=== PATIENT | female | born 1955 | race Caucasian/White ===

== ENCOUNTER 2017-06-01 11:48 | Inpatient (IN) ==
[2017-06-01] MEDS ORDERED: ZOSYN 3.375 GM in NS 50 ML IV SCH (15:15)
[2017-06-01 15:43] LABS: MANUAL DIFF NEEDED? NO
[2017-06-01 15:46] LABS: BASO% 0.2 % (0.0-0.8); EOS# 0.21 X1000 (0.0-0.7); EOS% 1.4 % (0.0-10.0); HEMATOCRIT 39.8 % (37.0-47.0); HEMOGLOBIN 13.4 g/dL (12.0-16.0); IMM GRAN# 0.03 X1000 (0.0-0.04); IMM GRAN% 0.2 % (0.0-0.5); LYMPH# 2.82 X1000 (1.2-3.4); LYMPH% 19.4 % (20.5-51.1); MCH 28.6 PG (27-31); MCHC 33.7 g/dL (33-37); MCV 84.9 FL (81-99); MONO# 1.08 X1000 (0.11-0.59); MONO% 7.4 % (1.7-9.3); MPV 9.2 FL (7.4-10.4); NEUT% 71.4 % (42.2-75.2); PLT 364 X1000 (130-400); RBC 4.69 XMIL (4.2-5.4)
[2017-06-01] MEDS: NS 1,000 ML IV SCH (15:48)
[2017-06-01 15:59] LABS: INR 0.98; PROTIME 10.3 Seconds (9.2-11.7)
[2017-06-01] MEDS ORDERED: LEVAQUIN 500 MG/D5W 500 MG/100 ML IVPB IV SCH (16:00)
[2017-06-01 16:04] LABS: AGAP 13; ALBUMIN 4.2 g/dL (3.5-5.0); ALKALINE PHOSPHATASE 107 U/L (32-104); BUN 7 mg/dL (8-22); CHLORIDE 103 mmol/L (98-107); CK PROFILE 32 U/L (24-173); COSMO 279; GOT 16 U/L (10-30); GPT 23 U/L (10-36); POTASSIUM 3.7 mmol/L (3.5-5.1); SODIUM 141 mmol/L (136-145); TCO2 25 mmol/L (25-35); TOTAL BILIRUBIN 0.37 mg/dL (0.20-1.00); TOTAL PROTEIN 7.4 g/dL (6.3-8.3)
[2017-06-01] MEDS: DUONEB (A & A) INH SCH ×3 (16:09→23:20)
[2017-06-01 16:13] LABS: ALLEN TEST YES; BE 1.6 mmoll (-3.0-3.0); BLOOD TYPE ARTERIAL; DRAW SITE R BRACHIAL; PCO2(98.6) 30 mmHg (35-45); PO2(98.6) 99 mmHg (60-100); SAMPLE BLOOD; SAO2 98.8 % (95.0-100.0); THB 12.8 g/dL (11.5-17.4); pH(98.6) 7.51 (7.35-7.45)
[2017-06-01 16:15] LABS: MODALITY ROOM AIR
[2017-06-01] MEDS: SOLU-MEDROL IV SCH ×2 (16:18→23:55)
[2017-06-01] MEDS: LEVAQUIN 750 MG/D5W 750 MG/150 ML IVPB IV SCH (16:18)
[2017-06-01] MEDS: LOVENOX SUBQ SCH (16:18)
[2017-06-01] MEDS: SODIUM CHLORIDE 0.9% INJ SCH (17:35)
[2017-06-01] MEDS: PROTONIX IV SCH (17:35)
--- NOTE | 2017-06-01 17:54 | Diag Imaging Result Doc PS360 ---
EXAM: CT THORAX W/CONTRAST - 06/01/2017 HISTORY: pneumonia TECHNIQUE: With intravenous contrast. Low-dose protocol. COMPARISON: None. FINDINGS: There are scattered patchy infiltrates at the right middle lobe, right lower lobe, inferior left upper lobe, and inferior left lower lobe. These may relate to pneumonitis or pneumonia. There is an 8 x 3 mm pleural-based nodular opacity versus peripheral atelectasis at the more superior posterior left lower lobe. There is a 4 mm nodule in the superior segment of the right lower lobe. There is no pleural effusion or pneumothorax identified. There is a calcified granuloma at the superior segment of the left lower lobe and there are calcified left hilar mediastinal lymph nodes from old granulomatous disease. There is mediastinal adenopathy which is most prominent at the subcarinal region. There are some small right hilar lymph nodes. Included sections of upper abdomen show possible mild fatty infiltration of the visualized portion of the liver. There are calcified granulomas in the spleen from old granulomatous disease. There is been previous cholecystectomy. IMPRESSION: Patchy bilateral infiltrates which may relate to pneumonitis or pneumonia. Nonspecific small nodular opacities at bilateral lower lobes. Mild mediastinal adenopathy, most prominent at the subcarinal mediastinum. This could be reactive, but malignant adenopathy is not excluded. Correlation with clinical evaluation is recommended. Electronically signed by Florian Conner 06/01/2017 5:52 PM
[2017-06-01] MEDS ORDERED: NICODERM PATCH TD PRN (19:14)
--- NOTE | 2017-06-01 22:44 | HISTORY AND PHYSICAL ---
CHIEF COMPLAINT: Shortness of breath, cough, wheezing for the last 10 days. HISTORY OF PRESENT ILLNESS: She is a 61-year-old pleasant white female, who was evaluated 3 times as an outpatient with cough, wheezing, continues to smoke and chest x-ray possible pneumonia in the right lower lobe. She was given 3 rounds of antibiotics, two injections. As a result, a hospital admission was warranted. Basically admitted for acute COPD exacerbation. PAST HISTORY: COPD. Nicotine dependency. Umbilical hernia. Hyperlipidemia. T12 chronic compression fracture. PAST SURGICAL HISTORY: Complete hysterectomy, C-spine diskectomy. Cholecystectomy. Bilateral carpal tunnel surgery. MEDICINES: Aspirin. Pravachol. Breo. Spiriva. Nebulizers. Z-Freddie. Doxycycline. Levaquin. Ed-A-Hist . Ultram as needed. ALLERGIES: Penicillin. SOCIAL HISTORY: . Two kids. Lives in [place]. Smoking 1 pack a day for last 33 years. Socially drinks alcohol. FAMILY HISTORY: Father of heart attack at 56. Mom of stroke. Sister recently had a bypass surgery. REVIEW OF SYSTEMS: HEENT: No headache. No vision problem. No earache. No sore throat. Neck: Supple. No lymphadenopathy. No goiter. Cardiopulmonary: Coughing, shortness of breath, wheezing. No chest pain. GI: No nausea, vomiting, abdominal pain. : No history of hesitancy, frequency. No swelling of legs. No joint pain. Neurologic: No focal symptoms or weakness. PHYSICAL EXAMINATION: VITAL SIGNS: She is afebrile. Tachycardic. Hemodynamics were stable. not in distress. HEENT: Atraumatic, normocephalic. Pupils equal, react to light. TMs are normal. Nose and throat within normal limits. NECK: Supple. No lymphadenopathy. No goiter. CHEST: Bilateral wheezing. HEART: Sounds are regular. Tachycardic. ABDOMEN: Belly is soft, nontender. Good bowel sounds. EXTREMITIES: No peripheral edema, cyanosis. NEUROLOGIC: No obvious neurological deficits. INVESTIGATIONS: CBC: White cell count 14, hematocrit 39, platelets 364,000. PT/INR is normal. ABG: PH is 7.1, pCO2 30, PO2 99, bicarb 26 on room air. SMA7: Normal and cardiac enzymes are normal. ProBNP was normal. CRP is slightly elevated. Check the EKG. Chest x- ray, early right lower lobe infiltrate. ASSESSMENT AND PLAN: A 61-year-old white female, admitted to the hospital with acute COPD exacerbation with bronchopneumonia on the right side. PLAN: 1. IV fluids. 2. Bronchodilators and IV steroids, IV Levaquin. 3. DVT GI prophylaxis as directed. 4. Nicotine patch. 5. Hyperlipidemia, on Pravachol. 6. Initiate vaccination protocol which includes flu and pneumonia prior to the discharge. We will also get a CT of the chest. Follow up on the pending labs and pulmonary function tests after she gets better. cc: Felipe De Luna MD MTDD
[2017-06-02] MEDS: NS 1,000 ML IV SCH ×3 (02:37→16:26)
[2017-06-02] MEDS: DUONEB (A & A) INH SCH ×7 (03:35→23:34)
[2017-06-02 05:57] LABS: HDL 45 mg/dL (45-65); LDL 164 mg/dL; TRIGLYCERIDES 113 mg/dL (35-135); VLDL 23 mg/dL
[2017-06-02] MEDS: SPIRIVA INH SCH (07:41)
[2017-06-02] MEDS: BREO ELLIPTA 100/25 MCG INH INH SCH (07:44)
--- NOTE | 2017-06-02 08:15 | Diag Imaging Result Doc PS360 ---
EXAM: CHEST-2 VIEWS HISTORY: hypoxia TECHNIQUE: Two views COMPARISON: None. FINDINGS: The lungs are well expanded. The heart is not enlarged. The vessels are not distended. There are no infiltrates. No pleural effusions. There is a granuloma in the upper left lung. IMPRESSION: No acute abnormality. Electronically signed by Srini Mckeon 06/02/2017 8:13 AM
[2017-06-02] MEDS: ASPIRIN PO SCH (09:02)
[2017-06-02] MEDS: SOLU-MEDROL IV SCH ×2 (09:02→16:16)
[2017-06-02] MEDS: PRAVACHOL PO SCH (09:02)
[2017-06-02] MEDS: LEVAQUIN 750 MG/D5W 750 MG/150 ML IVPB IV SCH (16:16)
[2017-06-02] MEDS: LOVENOX SUBQ SCH (16:16)
[2017-06-02] MEDS: PROTONIX IV SCH (16:16)
[2017-06-02] MEDS: SODIUM CHLORIDE 0.9% INJ SCH (16:16)
[2017-06-02] MEDS: TYLENOL PO PRN (17:23)
--- NOTE | 2017-06-02 19:40 | PROGRESS NOTE ---
DATE: 06/02/2017 SUBJECTIVE: The patient is still wheezing. No chest pain. REVIEW OF SYSTEMS: HEENT: Sniffles. Cardiopulmonary: No chest pain, shortness of breath, cough, wheezing. GI: None. Neurologic: No neurological symptoms. OBJECTIVE: Vital signs: Temperature is 98. Pulse is 88. Blood pressure is 113/53. On room air 96%. HEENT: Within normal limits with postnasal drainage. Neck: Supple. Chest: Decreased wheezing. Cardiac: Heart sounds are regular. Belly: Soft and nontender. Good bowel sounds. No masses palpable. Extremities: No peripheral edema or cyanosis. Neurologic: No obvious neurological deficits. INVESTIGATIONS: Lipid panel: Cholesterol 232, triglycerides 113, LDL 164, HDL 45. ASSESSMENT AND PLAN: 1. Acute COPD exacerbation with bilateral patchy pneumonia. Continue on IV steroids, IV Levaquin, Breo, and Spiriva. 2. DVT and GI prophylaxis. As per order sheet. 3. Hyperlipidemia. On Pravachol. 4. Initiate vaccination protocol, flu and pneumonia vaccine, prior to discharge. 5. Once she gets better, also due for pulmonary function tests. LEVEL OF DOCUMENTATION: Twenty-three minutes. cc: Felipe De Luna MD
[2017-06-03] MEDS: SOLU-MEDROL IV SCH ×4 (00:53→22:51)
[2017-06-03] MEDS: DUONEB (A & A) INH SCH ×6 (03:43→23:29)
[2017-06-03] MEDS: NS 1,000 ML IV SCH (06:34)
[2017-06-03] MEDS: BREO ELLIPTA 100/25 MCG INH INH SCH (07:58)
[2017-06-03] MEDS: SPIRIVA INH SCH (07:58)
[2017-06-03] MEDS: PRAVACHOL PO SCH (08:13)
[2017-06-03] MEDS: ASPIRIN PO SCH (08:13)
[2017-06-03] MEDS: TYLENOL PO PRN ×2 (10:40→22:50)
[2017-06-03] MEDS: LEVAQUIN 750 MG/D5W 750 MG/150 ML IVPB IV SCH (15:24)
[2017-06-03] MEDS: LOVENOX SUBQ SCH (15:25)
[2017-06-03] MEDS: PROTONIX IV SCH (16:48)
[2017-06-03] MEDS ORDERED: PNEUMOVAX 23 IM ONE (18:59)
--- NOTE | 2017-06-03 19:23 | PROGRESS NOTE ---
DATE: 06/03/2017 SUBJECTIVE: The patient is doing very well. Anxious to go home. Slowly improving. REVIEW OF SYSTEMS: None reported. EXAM: Vital Signs: Afebrile. Hemodynamics were stable. HEENT: Within normal limits. Neck: Supple. Chest: Bilateral air entry. No wheezing. Heart: Sounds are regular. Neurologic: No neurological deficits. INVESTIGATIONS: None reported. ASSESSMENT AND PLAN: 1. Acute chronic obstructive pulmonary disease with bronchopneumonia. Continue IV Levaquin, IV steroids. 2. Deep vein thrombosis/gastrointestinal prophylaxis, as per order sheet. 3. Chronic nicotine abuse on Nicotrol patches. 4. We will schedule for pulmonary function test prior to the discharge and also initiate vaccination protocol. Flu and pneumonia vaccine as well. LEVEL OF DOCUMENTATION: 15 minutes. cc: Felipe De Luna MD
[2017-06-04] MEDS: SOLU-MEDROL IV SCH ×3 (01:40→18:01)
[2017-06-04] MEDS: DUONEB (A & A) INH SCH ×6 (04:06→23:00)
[2017-06-04] MEDS: SPIRIVA INH SCH (07:33)
[2017-06-04] MEDS: BREO ELLIPTA 100/25 MCG INH INH SCH (07:34)
[2017-06-04] MEDS: PRAVACHOL PO SCH (09:29)
[2017-06-04] MEDS: ASPIRIN PO SCH (09:30)
[2017-06-04] MEDS: TYLENOL PO PRN ×2 (14:20→22:07)
[2017-06-04] MEDS ORDERED: MIRALAX PO PRN (14:23)
[2017-06-04] MEDS: LEVAQUIN 750 MG/D5W 750 MG/150 ML IVPB IV SCH (17:50)
[2017-06-04] MEDS: PROTONIX IV SCH (18:00)
[2017-06-04] MEDS: LOVENOX SUBQ SCH (18:00)
[2017-06-04] MEDS: SODIUM CHLORIDE 0.9% INJ SCH (18:00)
--- NOTE | 2017-06-04 20:50 | PROGRESS NOTE ---
DATE: 06/04/2017 SUBJECTIVE: Patient is improving. No complaints. Anxious to go home. REVIEW OF SYSTEMS: None reported. PHYSICAL EXAMINATION: Vital signs: Afebrile. Hemodynamics were stable. Input and output 600+. HEENT: Within normal limits. Chest: No wheezing. Heart: Sounds are regular. Abdomen: Belly is soft, nontender. Good bowel sounds. No masses palpable. Neurologic: No obvious neurological deficits. ASSESSMENT AND PLAN: 1. Acute COPD exacerbation with bronchopneumonia, improving. Decrease IV steroids. Continue IV antibiotics. 2. Tobacco abuse. Quit smoking. 3. Initiate flu and pneumonia prior to the discharge. We will discharge home after the evaluation of pulmonary function tests. LEVEL OF DOCUMENTATION: 25 minutes. cc: Felipe De Luna MD
[2017-06-05] MEDS ORDERED: SOLU-MEDROL IV SCH (02:00)
[2017-06-05] MEDS: DUONEB (A & A) INH SCH ×2 (02:36→07:50)
[2017-06-05] MEDS: TYLENOL PO PRN (06:44)
[2017-06-05 07:35] VITALS: BP 130/64
[2017-06-05] MEDS: BREO ELLIPTA 100/25 MCG INH INH SCH (07:50)
[2017-06-05] MEDS: SPIRIVA INH SCH (07:50)
[2017-06-05] MEDS: ASPIRIN PO SCH (08:53)
[2017-06-05] MEDS: PRAVACHOL PO SCH (08:53)
[2017-06-05] MEDS ORDERED: MIRALAX PO ONE (14:21)
--- NOTE | 2017-06-05 18:30 | DISCHARGE SUMMARY ---
ADMISSION DATE: 06/01/2017 DISCHARGE DATE: 06/05/2017 DISCHARGING DIAGNOSIS: Acute chronic obstructive pulmonary disease exacerbation with bilateral bronchopneumonia. SECONDARY DIAGNOSIS: 1. Chronic obstructive pulmonary disease. 2. Nicotine dependency. 3. Umbilical hernia. 4. Hypertension. 5. Chronic T12 compression fracture. BRIEF HISTORY: Please see the H and P that was done on 06/01/2017. In brief she is 61-year-old pleasant white female admitted to the hospital with not able to improve with outpatient medical management with shortness of breath, cough and wheezing. Chest x-ray did not show any definitive infiltrate except COPD changes. She is markedly wheezing. She was treated 3 times prior to the admission. HOSPITAL COURSE: She was given oxygen, bronchodilators, IV steroids, IV antibiotics and followup patient got better. She was advised to quit smoking. Nicotine cessation programs was advised. Pulmonary function test was done, is very suboptimal and seems to be restrictive pattern. No significant improvement after bronchodilatation. LABS: CBC, white cell count 14, hematocrit 39, platelets 364,000, PT 10, INR 0.9. ABG pH is 7.51, pCO2 30, PO2 99 on room air. SMA 7 is normal. Alkaline phosphatase 107. CRP 17, triglycerides 113, cholesterol 232, LDL 164. At the time of discharge patient was stable. DISCHARGING INSTRUCTIONS: 1. Abstain from smoking. 2. Pneumococcal vaccine 06/05/2017, aspirin 81 mg daily, Pravachol 40 daily, Levaquin 500 daily for 7 days, Medrol Dosepak, Spiriva 1 inhalation nighttime, Breo 1 in the morning, albuterol Atrovent nebulizers as needed. Will give a flu vaccine 2 weeks and will go back to work on coming Thursday. cc: Felipe De Luna MD MTDD
== END 2017-06-05 10:43 | disposition home or self-care (01) ==
LOC: DIRADM 11:48 → 4N 13:13
PROVIDERS: ADMIT Internal Medicine; ATTEND Internal Medicine